=== PATIENT | male | born 1950 | race Caucasian/White ===

== ENCOUNTER 2018-03-09 09:25 | Emergency (ER) | payer OTHER ==
[2018-03-09] MEDS: DIAZEPAM 5 MG TAB PO (10:15)
== END 2018-03-09 11:20 | disposition home or self-care (01) ==
LOC: FTE 09:25
DX: H81.399 Other peripheral vertigo, unspecified ear (principal); I10 Essential (primary) hypertension; Z79.82 Long term (current) use of aspirin
CPT/HCPCS: 99283; 99283-25